=== PATIENT | female | born 1995 | race Caucasian/White ===

== ENCOUNTER 2016-06-27 20:37 | Emergency (ER) | payer BC, OTHER ==
[2016-06-27 20:47] VITALS: BP 152/75
[2016-06-27] MEDS ORDERED: Albuterol 2.5 MG/3 ML NEB.SOL* (0.083%) INH ONE (20:54)
--- NOTE | 2016-06-27 21:22 | RAD ---
INDICATION: Chest pain, cough, history of asthma. COMPARISON: None. TECHNIQUE: Dual energy PA and routine lateral views of the chest were obtained. REPORT: Clear lungs and pleural spaces. Negative for pneumothorax. The heart, pulmonary vasculature, and mediastinal contours are unremarkable. Unremarkable osseous structures and soft tissue contours. IMPRESSION: No evidence for acute intrathoracic disease.
[2016-06-27] MEDS ORDERED: Albuterol HFA INHALER* 8 gm MDI INH ONE (21:33)
--- NOTE | 2016-07-03 13:17 | UC ---
iker Cox Timothy, scribed for Sunshine Good MD on 06/27/16 at 2048 . Cardiac HPI - HPI Summary HPI Summary: Angela Contreras is a 20 yo female presenting to [facility] with cough, SOB, and 5/10 chest pressure since today, worse with deep breaths and position changes. She had a cold as of two days ago, at which point she was nauseous. She also c/o YO , but denies sore throat and any other Sx. She has not had a flu shot. She has a Hx of pneumonia 2x, heart murmur. She currently has a nuva ring as a form of hormonal control. - History of Current Complaint Stated Complaint: COUGH,CHEST PAIN Time Seen by Provider: 06/27/16 20:43 Hx Obtained From: Patient Onset/Duration: Gradual Onset, Lasting Days, Still Present Timing: Constant Initial Severity: Moderate Current Severity: Moderate Pain Intensity: 5 Chest Pain Location: Mid Sternal Character: Pressure/Squeezing Aggravating: Position, Deep Breaths Alleviating: Nothing Associated Signs & Symptoms: Positive: Chest Pain, Headaches, SOB, Cough - Allergy/Home Medications Allergies/Adverse Reactions: Allergies Allergy/AdvReac Type Severity Reaction Status Date / Time Shellfish Allergy Allergy Facial Verified 06/27/16 20:47 Redness/Flushing Home Medications: Home Medications Nuvaring 06/27/16 [History] PMH/Surg Hx/FS Hx/Imm Hx Cardiovascular History Of: Reports: Cardiac Disorders - Heart murmur Respiratory History Of: Reports: Pneumonia - Family History Known Family History: Positive: Other - breast cancer - Social History Occupation: Student Lives: With Family Alcohol Use: Weekly - 1-3 drinks Substance Use Type: None Smoking Status (MU): Never Smoked Tobacco Review of Systems Constitutional: Negative Skin: Negative Eyes: Negative ENT: Negative Respiratory: Shortness Of Breath, Cough Cardiovascular: Chest Pain Gastrointestinal: Other - nausea Genitourinary: Negative Motor: Negative Neurovascular: Negative Musculoskeletal: Negative Neurological: Negative Psychological: Negative All Other Systems Reviewed And Are Negative: Yes Physical Exam Triage Information Reviewed: Yes Appearance: No Pain Distress, Well-Nourished, Ill-Appearing Vital Signs: Initial Vital Signs Temp 99.0 F 06/27/16 20:40 Pulse 95 06/27/16 20:40 Resp 20 06/27/16 20:40 BP 152/75 06/27/16 20:40 Pulse Ox 98 06/27/16 20:40 Vital Signs Reviewed: Yes Eyes: Positive: Conjunctiva Clear ENT: Positive: Hearing grossly normal, Pharynx normal, TMs normal. Negative: Tonsillar swelling, Tonsillar exudate, Muffled/hoarse voice Neck: Positive: Supple, Nontender Respiratory: Positive: Lungs clear, Normal breath sounds, No respiratory distress Cardiovascular: Positive: RRR, No Murmur, Pulses Normal, Brisk Capillary Refill Abdomen Description: Positive: Nontender, No Organomegaly, Soft Bowel Sounds: Positive: Present Musculoskeletal: Positive: Strength Intact, ROM Intact, Other: - no calf tenderness Neurological: Positive: Alert, Muscle Tone Normal Psychological Exam: Normal Skin Exam: Normal Diagnostics - Radiology CXR Xray Interpretation: No Acute Changes - No evidence for acute intrathoracic disease Radiology Interpretation Completed By: Radiologist - EKG Cardiac Rate: NL - 77 BPM. Interpretation: NSR @ 77 BPM, normal AV/IV conduction times. Normal Doyle. Normal QTC. No acute changes. No prior EKG for comparison. Re-Evaluation - Re-Evaluation First Eval Re-Evaluation Time: 21:28 Change: Improved - Pt was informed of results of CXR - Assessment/Plan Course Of Treatment: Anglea Contreras is a 20 yo female presenting to [facility] with CP , SOB, and cough since today. She had a cold two days ago. Her rapid flu tests are negative. Her EKG is normal. Her CXR shows no evidence for acute disease. After review, she will be discharged home with asthma exacerbation, and instructions to follow up with [facility]. - Differential Diagnoses - Chest Pain Differential Diagnosis/HQI/PQRI: Other: - pneumonia, bronchitis - Clinical Impression Provider Diagnoses: asthma exacerbation Discharge - Discharge Plan Condition: Stable Disposition: HOME Prescriptions: Azithromycin TAB* [Zithromax TAB (Z-RONNY) 250 mg #6 tabs] 2 tab PO .TODAY, THEN 1 DAILY #1 ronny predniSONE TAB* [Deltasone TAB*] 40 mg PO DAILY #10 tab Patient Education Materials: Asthma (ED), Exercise Induced Bronchoconstriction (ED), Upper Respiratory Infection (ED) Referrals: [facility] [Primary Care Provider] - 3 Days Additional Instructions: I have prescribed Zithromax and prednisone for you to take if your symptoms do not resolve within two or three days. These were sent to the [facility] pharmacy on [address] Follow up with [place] if your symptoms do not resolve. Return to urgent care or the emergency department with any new or recurring symptoms. The documentation as recorded by the iker bull Timothy accurately reflects the service I personally performed and the decisions made by me, Sunshine Good MD.
== END 2016-06-27 21:42 | disposition home or self-care (01) ==
LOC: UCEAST 20:37
DX: J45.901 Unspecified asthma with (acute) exacerbation (principal); R07.89 Other chest pain
CPT/HCPCS: 71020; 87502; 93005; 99202; A9270-GY; G0463